=== PATIENT | female | born 1960 | race Caucasian/White ===

== ENCOUNTER 2019-03-14 15:51 | Emergency (ER) | payer OTHER ==
[2019-03-14 15:55] VITALS: BP 147/92
--- NOTE | 2019-03-14 16:30 | EDPHY ---
H & P Stated Complaint: Rash Time Seen by Provider: 03/14/19 16:01 HPI/ROS: CHIEF COMPLAINT: Rash HISTORY OF PRESENT ILLNESS: 58-year-old female presents with a rash. She woke yesterday morning with facial erythema and erythema on the neck. Face feels warm and the redness has persisted. She thinks she may have had a rash on the back as well. This morning she awoke and noticed a rash on the anterior aspect of the left leg. She became concerned about measles, because she was recently traveling. No fever, cough, coryza or conjunctivitis. The rash is not pruritic. REVIEW OF SYSTEMS: complete 10 point ROS reviewed and is negative except for the noted elements in the HPI - Personal History Current Tetanus/Diphtheria Vaccine: Yes - Medical/Surgical History Hx Asthma: Yes Hx Chronic Respiratory Disease: No Hx Diabetes: No Hx Cardiac Disease: No Hx Renal Disease: No Hx Cirrhosis: No Hx Alcoholism: No Hx HIV/AIDS: No Hx Splenectomy or Spleen Trauma: No Other PMH: Denies medical history . UTI. hysterectomy - Social History Smoking Status: Former smoker - Physical Exam Exam: General Appearance: Alert, pleasant Eyes: Pupils equal and round, no conjunctival pallor or injection ENT, Mouth: Mucous membranes moist Neck: Normal inspection Respiratory: Lungs are clear to auscultation Cardiovascular: Regular rate and rhythm Gastrointestinal: Abdomen is soft and nontender Neurological: A&O, nonfocal, normal gait Skin: Erythema over the cheeks, nasal bridge, chin and anterior neck, appears like sunburn; left anterior lower leg-nonblanching erythema in an oval shape, approximately 6ccm in length and 3cm in width, no tenderness or warmth; no other rash on the torso or extremities Extremities: No swelling or tenderness Psychiatric: Mood and affect normal Constitutional: Initial Vital Signs Temperature (C) 36.6 C 03/14/19 15:53 Heart Rate 70 03/14/19 15:53 Respiratory Rate 16 03/14/19 15:53 Blood Pressure 147/92 H 03/14/19 15:53 O2 Sat (%) 96 03/14/19 15:53 O2 Delivery Mode Room Air Allergies/Adverse Reactions: Sulfa (Sulfonamide Antibiotics) Allergy (Verified 03/14/19 15:55) Home Medications: Medication Instructions Recorded Cephalexin [Keflex] 500 mg PO QID #40 cap 06/17/18 Nitrofurantoin Monohyd/M-Cryst 100 mg PO 06/17/18 [Macrobid 100 mg Capsule] Medical Decision Making ED Course/Re-evaluation: This patient presents with facial/anterior neck erythema, most consistent with sunburn. LLE rash c/w ecchymosis, pt denies trauma. Advised CBC, pt declines. Pt reassured that this rash is not measles. Departure - Departure Disposition: Home, Routine, Self-Care Clinical Impression: Facial flushing, Rash in adult Condition: Good Instructions: Acute Rash (ED) Additional Instructions: Return for worsening symptoms, fever, any concerns. Referrals: Radha Payton MD [Primary Care Provider] - As per Instructions
== END 2019-03-14 16:35 | disposition home or self-care (01) ==
DX: R21 Rash and other nonspecific skin eruption (principal); R23.2 Flushing; Z87.891 Personal history of nicotine dependence